=== PATIENT | male | born 1980 | race Two or more races ===

== ENCOUNTER 2016-08-07 13:36 | Emergency (ER) | payer SELFPAY ==
[~2016-08-07] VITALS: Ht 167.6 cm; Wt 77.1 kg
[~2016-08-07 13:36] MED LIST: LORazepam Inj 2mg/ml 1ml IV ONE
[2016-08-07 14:03] LABS: MEAN CORPUSCULAR HEMOGLOBIN 25.8 PG (27.0-31.0); MEAN CORPUSCULAR HGB CONC 31.3 G/DL (32.0-36.0); MEAN CORPUSCULAR VOLUME 83 FL (80-99); MEAN PLATELET VOLUME 11.7 FL (6.5-10.1); PLATELET COUNT 100 K/UL (150-450); RED BLOOD COUNT 5.06 M/UL (4.70-6.10); RED CELL DISTRIBUTION WIDTH 16.5 % (11.6-14.8); WHITE BLOOD COUNT 3.2 K/UL (4.8-10.8)
[2016-08-07] MEDS ORDERED: Famotidine 20 MG/ 2ML VIAL IVP ONE (14:15)
[2016-08-07 14:19] LABS: ACETAMINOPHEN < 10 ug/mL (10-30); ALANINE AMINOTRANSFERASE 101 U/L (3-41); ALBUMIN/GLOBULIN RATIO 1.2 (1.0-2.7); ALCOHOL < 10 mg/dL; ANION GAP 17 (5-15); ASPARTATE AMINO TRANSFERASE 241 U/L (5-40); CALCIUM 9.7 mg/dL (8.6-10.2); CARBON DIOXIDE 28 mEQ/L (20-30); CHLORIDE 90 mEQ/L (98-107); CREATININE 0.5 mg/dL (0.7-1.2); GLOMERULAR FILTRATION RATE > 60 mL/min (>60); HEMOLYSIS 8; POTASSIUM 4.2 mEQ/L (3.4-4.9); SODIUM 135 mEQ/L (135-145); TOTAL PROTEIN 8.1 g/dL (6.6-8.7)
[2016-08-07 14:21] LABS: TROPONIN I < 0.30 ng/mL (<=0.30)
[2016-08-07 14:26] LABS: ANISOCYTOSIS 1+; BAND NEUTROPHILS % (MANUAL) 0 % (0-8); BASOPHILS % (MANUAL) 0 % (0-2); EOSINOPHILS % (MANUAL) 0 % (0-3); HYPOCHROMASIA 1+; LYMPHOCYTES % (MANUAL) 12 % (20-45); NEUTROPHILS % (MANUAL) 71 % (45-75); PLATELET ESTIMATE DECREASED; PLATELET MORPHOLOGY NORMAL; TOTAL CELLS COUNTED 100
[2016-08-07 14:31] LABS: BILIRUBIN,DIRECT 0.3 mg/dL (0.1-0.3)
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
[2016-08-07 15:00] VITALS: BP 173/117
[2016-08-07] MEDS ORDERED: Lisinopril 10mg tab ORAL ONE (15:00)
[2016-08-07 16:00] VITALS: BP 170/109
--- NOTE | 2016-08-07 16:35 | Diagnostic Imaging Report ---
Indication: Chest pain Technique: Single portable AP view of the chest. Findings: Comparison: None. The bones and extra pulmonary soft tissues, cardiomediastinal silhouette, pulmonary vasculature and parenchyma, and pleural surfaces are unremarkable. IMPRESSION: Negative portable AP chest .
[2016-08-07] MEDS ORDERED: LIBRIUM10 MG ORAL (18:12)
[2016-08-07] MEDS ORDERED: LISINOPRIL5 MG ORAL (18:12)
[2016-08-07 19:04] VITALS: BP 167/132
[2016-08-07 19:20] VITALS: BP 167/132
--- NOTE | 2016-08-08 19:00 | Cardiology Report ---
APPROVED REPORT EKG Measurement Heart [id number] Normal sinus rhythm Normal ECG
== END 2016-08-07 19:15 | disposition home or self-care (01) ==
LOC: EDBD 13:36 → EMR 14:44
DX: F10.230 Alcohol dependence with withdrawal, uncomplicated (principal); R00.2 Palpitations; R07.9 Chest pain, unspecified; I10 Essential (primary) hypertension; F99 Mental disorder, not otherwise specified
CPT/HCPCS: 36415; 71010; 80053; 80300; 82248; 83880; 84484; 85007; 85025; 93005; 96360; 96374; 96375; 99284; G0480; J2405; S0028; 80329

== ENCOUNTER 2018-05-09 09:26 | Emergency (ER) | payer SELFPAY ==
[~2018-05-09] VITALS: Ht 175.3 cm; Wt 72.6 kg
[~2018-05-09 09:26] MED LIST changes: +LIBRIUM10 MG ORAL; +LISINOPRIL5 MG ORAL; -LORazepam Inj 2mg/ml 1ml IV ONE; +NKM
[2018-05-09 09:37] VITALS: BP 159/115
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
--- NOTE | 2018-05-09 09:38 | NUR ---
ED Nurse Note: Dr Rivera aware of chest pain.
--- NOTE | 2018-05-09 10:13 | Emergency Room Report ---
History of Present Illness General Chief Complaint: Chest Pain Source: Patient, EMS Present Illness HPI Patient complains of chest pain for 3 days. Worse on movement. No virus. He denies any trauma. He does complain of a fall about a week ago on the right leg. He is able to ambulate. He also states he had a couple of drinks last night. He denies any diaphoresis or shortness of breath. No radiation to the back. Allergies: Coded Allergies: No Known Allergies (Unverified , 08/07/16) Patient History Past Medical History: HTN, other - non compliant with meds Past Surgical History: none Pertinent Family History: none Social History: Reports: alcohol use Nursing Documentation-PMH Hx Hypertension: Yes Hx Neurological Problems: Yes - ALCOHOL ABUSE Review of Systems All Other Systems: negative except mentioned in HPI Physical Exam Vital Signs Date Time Temp Pulse Resp B/P (MAP) Pulse Ox O2 Delivery O2 Flow Rate FiO2 05/09/18 09:12 99.9 120 18 159/115 99 Room Air General Appearance: well appearing, no apparent distress Head: normocephalic, atraumatic ENT: hearing grossly normal, normal voice Respiratory: normal inspection, other - chest wall tenderness Cardiovascular #1: no edema Gastrointestinal: normal inspection, non tender, soft Musculoskeletal: normal inspection, other - ecchymosis on right calf. No swelling. negative Arden's sign. no bony tenderness Medical Decision Making Diagnostic Impression: Primary Impression: Chest pain ER Course Patient has had multiple bedside evaluations. Patient alert and nontoxic- appearing. His chest pain is somewhat atypical. Cardiac etiology was considered however unlikely. Normal EKG. He's had this chest pain for about 3 days with a negative troponin. X-ray was reviewed. I also did consider pulmonary etiology, including pneumothorax, pneumonia, aortic dissection. Unlikely. The patient was given pain medication with near complete resolution of symptoms. He is able to ambulate. He has completely decision-making capacity. I feel the patient may be discharged home with very close follow-up with primary care physician as an outpatient. Laboratory Tests Test 05/09/18 09:30 White Blood Count 4.9 K/UL (4.8-10.8) Red Blood Count 4.57 M/UL (4.70-6.10) L Hemoglobin 13.6 G/DL (14.2-18.0) L Hematocrit 42.4 % (42.0-52.0) Mean Corpuscular Volume 93 FL (80-99) Mean Corpuscular Hemoglobin 29.8 PG (27.0-31.0) Mean Corpuscular Hemoglobin Concent 32.1 G/DL (32.0-36.0) Red Cell Distribution Width 15.1 % (11.6-14.8) H Platelet Count 67 K/UL (150-450) L Mean Platelet Volume 8.4 FL (6.5-10.1) Neutrophils (%) (Auto) % (45.0-75.0) Lymphocytes (%) (Auto) % (20.0-45.0) Monocytes (%) (Auto) % (1.0-10.0) Eosinophils (%) (Auto) % (0.0-3.0) Basophils (%) (Auto) % (0.0-2.0) Differential Total Cells Counted 100 Neutrophils % (Manual) 87 % (45-75) H Lymphocytes % (Manual) 9 % (20-45) L Monocytes % (Manual) 4 % (1-10) Eosinophils % (Manual) 0 % (0-3) Basophils % (Manual) 0 % (0-2) Band Neutrophils 0 % (0-8) Platelet Estimate Decreased L Platelet Morphology Normal Anisocytosis 1+ Sodium Level 132 MMOL/L (136-145) L Potassium Level 3.8 MMOL/L (3.5-5.1) Chloride Level 95 MMOL/L (98-107) L Carbon Dioxide Level 28 MMOL/L (21-32) Anion Gap 9 mmol/L (5-15) Blood Urea Nitrogen 5 mg/dL (7-18) L Creatinine 0.8 MG/DL (0.55-1.30) Estimate Glomerular Filtration Rate > 60 mL/min (>60) Glucose Level 242 MG/DL (74-106) H Calcium Level 8.6 MG/DL (8.5-10.1) Total Bilirubin 1.5 MG/DL (0.2-1.0) H Direct Bilirubin 0.4 MG/DL (0.0-0.3) H Aspartate Amino Transferase (AST) 193 U/L (15-37) H Alanine Aminotransferase (ALT) 107 U/L (12-78) H Alkaline Phosphatase 190 U/L (46-116) H Troponin I 0.017 ng/mL (0.000-0.056) Total Protein 8.0 G/DL (6.4-8.2) Albumin 3.7 G/DL (3.4-5.0) Globulin 4.3 g/dL Albumin/Globulin Ratio 0.9 (1.0-2.7) L EKG Diagnostic Results EKG Time: 10:14 Rate: normal Rhythm: NSR ST Segments: no acute changes ASA given to the pt in ED: Yes Chest X-Ray Diagnostic Results Chest X-Ray Diagnostic Results : # of Views/Limited/Complete: 1 View Indication: Chest Pain EP Interpretation: Yes PA Xray: Interpretation reviewed Last Vital Signs Date Time Temp Pulse Resp B/P (MAP) Pulse Ox O2 Delivery O2 Flow Rate FiO2 05/09/18 09:37 98.9 120 18 159/115 99 Room Air Status: improved Disposition: HOME, SELF-CARE Condition: Stable Scripts Acetaminophen* (ACETAMINOPHEN EXTRA STRENGTH*) 500 Mg Tablet 500 MG ORAL Q8H PRN for Fever/Headache/Mild Pain, #30 TAB Prov: MERARY PALAFOX 05/09/18 Patient Instructions: Nonspecific Chest Pain MERARY PALAFOX May 09, 2018 10:13
[2018-05-09] MEDS ORDERED: Aspirin Baby 81mg ORAL ONE (10:15)
[2018-05-09] MEDS ORDERED: Morphine Sulfate 4mg/ml Inj (IV USE ONLY) IVP ONE (10:15)
--- NOTE | 2018-05-09 10:22 | NUR ---
ED Nurse Note: electrical/instrument technician at the bed side for CXR.
[2018-05-09 10:41] LABS: ANION GAP 9 mmol/L (5-15); BLOOD UREA NITROGEN 5 mg/dL (7-18); CALCIUM 8.6 MG/DL (8.5-10.1); CARBON DIOXIDE 28 MMOL/L (21-32); CHLORIDE 95 MMOL/L (98-107); CREATININE 0.8 MG/DL (0.55-1.30); HEMATOCRIT 42.4 % (42.0-52.0); HEMOGLOBIN 13.6 G/DL (14.2-18.0); MEAN CORPUSCULAR VOLUME 93 FL (80-99); PLATELET COUNT 67 K/UL (150-450); POTASSIUM 3.8 MMOL/L (3.5-5.1); RED BLOOD COUNT 4.57 M/UL (4.70-6.10); RED CELL DISTRIBUTION WIDTH 15.1 % (11.6-14.8); SODIUM 132 MMOL/L (136-145); WHITE BLOOD COUNT 4.9 K/UL (4.8-10.8)
[2018-05-09 10:52] VITALS: BP 171/103
[2018-05-09 10:52] LABS: ALANINE AMINOTRANSFERASE 107 U/L (12-78); ALBUMIN 3.7 G/DL (3.4-5.0); ALBUMIN/GLOBULIN RATIO 0.9 (1.0-2.7); ALKALINE PHOSPHATASE 190 U/L (46-116); ASPARTATE AMINO TRANSFERASE 193 U/L (15-37); BILIRUBIN,TOTAL 1.5 MG/DL (0.2-1.0)
[2018-05-09 10:59] LABS: BILIRUBIN,DIRECT 0.4 MG/DL (0.0-0.3)
--- NOTE | 2018-05-09 11:05 | Diagnostic Imaging Report ---
EXAM: XR Chest, 1 View CLINICAL HISTORY: PAIN TECHNIQUE: Frontal view of the chest. COMPARISON: Chest x-ray dated 08/07/16 FINDINGS: Lungs: Unremarkable. The lungs appear clear. No focal consolidation. Pleural space: Unremarkable. The costophrenic angles are sharp. No visible pneumothorax. Heart: Unremarkable. No cardiomegaly. Mediastinum: Unremarkable. Bones/joints: Unremarkable. Tubes, lines and devices: EKG leads overlie the thorax. IMPRESSION: No acute findings.
[2018-05-09] MEDS ORDERED: ACETAMINOPHEN500 M3 ORAL (12:28)
--- NOTE | 2018-05-09 13:05 | NUR ---
ER Nurse Note: Pt cleared by ER MD for discharge. Homless DC paper filled up and signed. DC instructions/prescription was given and explained to pt and verbalized understanding of teachings. All medical devices such as ID band/IV removed. Pt is AAO x4, ambulatory and left with all personal belongings.
--- NOTE | 2018-05-10 16:52 | Cardiology Report ---
APPROVED REPORT EKG Measurement Heart [id number] [place] [id number] Normal sinus rhythm Normal ECG
== END 2018-05-09 13:05 | disposition home or self-care (01) ==
LOC: EDBD 09:26 → EMR 10:09
DX: R07.9 Chest pain, unspecified (principal); I10 Essential (primary) hypertension; Z91.14 Patient's other noncompliance with medication regimen
CPT/HCPCS: 36415; 71045; 80053; 82248; 84484; 85007; 85025; 93005; 96372; 99283; J2270